=== PATIENT | female | born 1990 | race Two or more races ===

== ENCOUNTER 2023-12-06 18:22 | Emergency (ER) | payer MEDICAID ==
[~2023-12-06] VITALS: Ht 157.5 cm; Wt 75.2 kg
[2023-12-06 18:30] VITALS: BP 134/65; RESP 16; O2SAT 98
[2023-12-06 18:38] VITALS: PULSE 66
[2023-12-06 22:01] LABS: Urine Bacteria None Seen /hpf (None Seen)
[2023-12-06 22:15] LABS: Urine Blood 2+ /uL (Negative); Urine Clarity Clear (Clear); Urine Color Light-Yellow (Yellow); Urine Mucus FEW (None Seen); Urine Protein, UAD TRACE (Negative); Urine Specific Gravity 1.033 (1.001-1.035); Urine Urobilinogen Normal (Negative); Urine WBC <1 /hpf (0 - 5); Urine pH 5.5 (5.0-9.0)
[2023-12-06] MEDS ORDERED: MECL1TAB42 PO (23:38)
[2023-12-06] MEDS ORDERED: ZOFR4T PO (23:38)
[2023-12-07] MEDS: MECLIZINE HCL 25 MG TAB PO ONE (00:50)
== END 2023-12-07 00:21 | disposition home or self-care (01) ==
LOC: ER 18:22
DX: R42 Dizziness and giddiness (principal)
CPT/HCPCS: 70450; 81001; 82962; 93005

== ENCOUNTER 2024-08-04 04:12 | Emergency (ER) | payer MEDICAID ==
[~2024-08-04] VITALS: Ht 157.5 cm; Wt 74.4 kg
[~2024-08-04 04:12] MED LIST: MECL1TAB42 PO; ZOFR4T PO
[2024-08-04 04:42] VITALS: BP 120/70; PULSE 80; RESP 16; TEMP 98.5; O2SAT 97
[2024-08-04] MEDS ORDERED: AUG875T PO (04:46)
--- NOTE | 2024-08-04 04:46 | ED.PDOC ---
Eye-HPI HPI Comments This is a 34-year-old female patient presents to the ED sore throat x5 days. Patient reports related symptoms of cough and bilateral ear pain and left-sided neck pain. Denies chest pain, difficulty breathing, shortness of breath does note tactile fevers at home. Chief Complaint: Sore Throat Time Seen by MD: 04:21 Primary Care Provider: KEELEY Reviewed Notes: Nurses Notes, Medications, Allergies Allergies: Coded Allergies: No Known Drug Allergy (Verified Allergy, Unknown, 12/06/23) Home Meds Active Scripts Amoxicillin & Pot Clavulanate (AUGMENTIN TABLET) 875 Mg Tb, 1 TAB PO BID for 7 Days, #14 TAB Prov:JOSÉ LUISGARCIA INCOME TAX PREPARER 08/04/24 Ondansetron Odt 4MG Tab (ZOFRAN PO) 4 Mg Tb, 4 MG PO TID, #14 TAB ODT TAB-DISSOLVE IN MOUTH, THEN SWALLOW Prov:BETSY BURRELL MD 12/06/23 Meclizine HCl (Meclizine 25) 25 Mg Tab, 25 MG PO TID, #14 TAB Prov:BETSY BURRELL MD 12/06/23 Information Source: Patient Mode of Arrival: Ambulatory Past Medical History PAST MEDICAL HISTORY: Denies Surgical History: Denies all surgeries BI TECHNICAL LEAD History: No Pertinent BI TECHNICAL LEAD History Family History Family History: Reviewed,noncontributory to illness, No family hx of Cancer, No family hx of DM, No family hx of Heart jose f, No family hx of HTN, No family hx ofKidney jose f, No family hx of Liver jose f, No family hx of Lung jose f, No family hx of Stroke Social History Smoker: Non-Smoker Alcohol: Denies ETOH Use Drugs: Denies Drug Use Constitutional: reports: fever; denies: chills, diaphoresis, fatigue, malaise, sweats, weakness, others EENTM: reports: ear pain, throat pain, throat swelling Respiratory: reports: cough; denies: hemoptysis, orthopnea, SOB at rest, shortness of breath, SOB with excertion, stridor, wheezing, others Cardiovascular: denies: chest pain, dizzy spells, diaphoresis, Dyspnea on exertion, edema, irregular heart beat, left arm pain, lightheadedness, palpitations, PND, syncope, others Gastrointestinal: denies: abdomen distended, abdominal pain, blood streaked bowels, constipated, diarrhea, dysphagia, difficulty swallowing, hematemesis, melena, nausea, poor appetite, poor fluid intake, rectal bleeding, rectal pain, vomiting, others Genitourinary: denies: abnormal vagina bleeding, burning, dyspareunia, dysuria, flank pain, frequency, hematuria, incontinence, pain, , vagina discharge, urgency, others Neurological: denies: dizziness, fainting, headache, left sided numbness, left sided weakness, numbness, paresthesia, pre-existing deficit, right sided numbness, right sided weakness, seizure, speech problems, tingling, tremors, weakness, others Musculoskeletal: denies: back pain, gout, joint pain, joint swelling, muscle pain, muscle stiffness, neck pain, others Integumetry: denies: bruises, change in color, change in hair/nails, dryness, laceration, lesions, lumps, rash, wounds, others Allergic/Immunocompromised: denies: Difficulty Healing, Frequent Infections, Hives, Itching, others Hematologic/Lymphatic: denies: anemia, blood clots, easy bleeding, easy bruising, swollen glands, others Endocrine: denies: excessive hunger, excessive sweating, excessive thirst, excessive urination, flushing, intolerance to cold, intolerance to heat, unexplained weight gain, unexplained weight loss, others Psychiatric: denies: anxiety, bipolar disorder, depression, hopeless, panic disorder, schizophrenia, sleepless, suicidal, others Physical Exam General Appearance: No Apparent Distress, Normal HEENT: Pharyngeal Erythema, TMs Normal Neck: Full Range of Motion, Non-Tender Respiratory: Lungs Clear, No Accessory Muscle Use, No Respiratory Distress, Normal Breath Sounds Cardiovascular: No Edema, No JVD, No Murmur, No Gallop, Normal Peripheral Pulses, Regular Rate/Rhythm Breast Exam: Deferred Gastrointestinal: Non Tender, Soft Genitalia: Deferred Pelvic: Deferred Rectal: Deferred Extremities: Normal capillary refill, Normal inspection, Normal range of motion, Non-tender, No pedal edema Musculoskeletal : Apperance: Normal Neurologic: Alert, blender operator II-XII nml as Tested, No Motor Deficits, Normal Affect, Normal Mood, No Sensory Deficits Cerebellar Function: Normal Reflexes: Normal Skin: Dry, Normal Color, Warm Lymphatic: No Adenopathy Was a procedure done? Was a procedure done?: No EENT DIFF Eye: N/A Sore Throat: Streptococcal X-Ray, Labs, Meds, VS Vital Signs Date Time Temp Pulse Resp B/P (MAP) Pulse Ox O2 Delivery O2 Flow Rate FiO2 08/04/24 04:42 98.5 80 16 120/70 (87) 97 98.5 08/04/24 04:42 80 16 97 Room Air 08/04/24 04:26 98.5 80 16 121/70 (87) 97 Current Medications Medications (Trade) Dose Ordered Sig/Julius Route Start Time Stop Time Status Last Admin Dexamethasone Sodium Phosphate (Decadron Injection) 10 mg ONCE ONCE IM 08/04/24 05:00 08/04/24 05:01 08/04/24 04:49 X-Ray, Labs, Meds, VS Comment Decadron 10 mg given IM patient reports improvement in symptoms requesting discharge at this time. We will prescribing hold Augmentin twice daily x7 days advised not to fill it unless symptoms continue and fevers within 24-48 hours. Advised to rest increase p.o. fluids with electrolytes [id number] Tylenol or Motrin as needed for pain or fever per labeled dosing instruction. Advised to follow up with PCP in 2-3 days as necessary. Patient indicated understanding. Patient agrees with discharge plan of care. Time of 1ST Reevaluation: 04:55 Reevaluation 1ST: Improved Patient Education/Counseling: Diagnosis, Treatment, Prognosis, Need For Follow Up Family Education/Counseling: No Family Present Departure 1 Departure Time of Disposition: 04:45 Impression: Primary Impression: Upper respiratory tract infection Qualified Codes: J06.9 - Acute upper respiratory infection, unspecified Disposition: 01 HOME / SELF CARE / HOMELESS Condition: Stable e-Prescriptions Amoxicillin & Pot Clavulanate (AUGMENTIN TABLET) 875 Mg Tb 1 TAB PO BID for 7 Days, #14 TAB Prov: GARCIA ORDONEZ 08/04/24 Discharged With: Self Critical Care Note Critical Care Time?: No Stability Stability form required: GARCIA Bautista Aug 04, 2024 04:46
[2024-08-04] MEDS: DexAMETHasone SOD PHOS 10MG/1ML VIAL INJ IM ONE (04:49)
== END 2024-08-04 04:57 | disposition home or self-care (01) ==
LOC: ER 04:12
DX: J06.9 Acute upper respiratory infection, unspecified (principal); Z79.899 Other long term (current) drug therapy
CPT/HCPCS: 96372; 99283; J1100